=== PATIENT | male | born 1970 | race African-American/Black ===

== ENCOUNTER 2019-03-15 06:11 | Emergency (ER) | payer MEDICAID ==
[~2019-03-15] VITALS: Ht 175.3 cm; Wt 64.0 kg
[2019-03-15] MEDS ORDERED: IBUPROFEN 600MG TABLET PO ONE (06:45)
[2019-03-15 07:53] LABS: CLARITY URINE CLEAR (CLEAR); COLOR URINE YELLOW (YELLOW); KETONES URINE NEGATIVE (NEGATIVE); LEUKOCYTE ESTERASE URINE NEGATIVE (NEGATIVE); NITRITE URINE NEGATIVE (NEGATIVE); OCCULT BLOOD URINE NEGATIVE (NEGATIVE); PROTEIN URINE NEGATIVE (NEGATIVE); SPECIFIC GRAVITY URINE 1.023 (1.005-1.030)
[2019-03-15 08:21] LABS: METHADONE URINE SCREEN NEGATIVE (NEGATIVE)
[2019-03-15 08:22] LABS: *AMPHETAMINES SCREEN URINE NEGATIVE (NEGATIVE); *BARBITURATES SCREEN URINE NEGATIVE (NEGATIVE); *BENZODIAZEPINES SCREEN URINE NEGATIVE (NEGATIVE); *COCAINE SCREEN URINE NEGATIVE (NEGATIVE); CANNABINOID URINE SCREEN PRESUMTIVE POSITIVE (NEGATIVE); OPIATES URINE SCREEN NEGATIVE (NEGATIVE); PHENCYCLIDINE URINE SCREEN NEGATIVE (NEGATIVE)
[2019-03-15 14:30] VITALS: BP 135/86
== END 2019-03-15 14:36 | disposition home or self-care (01) ==
LOC: ER 06:11
DX: M79.10 Myalgia, unspecified site (principal); R05 Cough; R51 Headache; Z59.0 Homelessness
CPT/HCPCS: 71045; 80305; 81003; 82962; 99284